=== PATIENT | female | born 1980 | race Asian ===

== ENCOUNTER 2022-10-09 08:15 | Emergency (ER) | payer MEDICAID, OTHER ==
[~2022-10-09] VITALS: Ht 152.4 cm; Wt 48.5 kg
[2022-10-09 08:56] VITALS: BP_SYST 116; PULSE 80; RESP 17; TEMP 98.6; O2SAT 98
[2022-10-09 09:23] LABS: STREPTOCOCCUS A SCREEN (RAPID) NEGATIVE (NEGATIVE)
[2022-10-09 09:26] LABS: COVID19 ANTIGEN SOFIA FIA POSITIVE (NEGATIVE)
[2022-10-09 09:28] LABS: INFLUENZA TYPE A negative (NEGATIVE); INFLUENZA TYPE B NEGATIVE (NEGATIVE)
[2022-10-09] MEDS ORDERED: NIRM1TAB5 PO (09:58)
[2022-10-09] MEDS ORDERED: IBUP-1969 PO (09:58)
[2022-10-09 11:25] VITALS: BP_SYST 116; PULSE 80; RESP 17; TEMP 98.6; O2SAT 98
== END 2022-10-09 10:10 | disposition home or self-care (01) ==
LOC: SED 08:15
DX: U07.1 COVID-19 (principal); J40 Bronchitis, not specified as acute or chronic; R05.9 Cough, unspecified; J02.9 Acute pharyngitis, unspecified; R09.81 Nasal congestion; Z79.899 Other long term (current) drug therapy
CPT/HCPCS: 36415; 71045; 81025; 86403; 87081; 99284

== ENCOUNTER 2023-01-14 08:07 | Emergency (ER) | payer MEDICAID ==
[~2023-01-14] VITALS: Ht 152.4 cm; Wt 48.5 kg
[2023-01-14 08:07] VITALS: BP_SYST 120; PULSE 84; RESP 18; TEMP 98.3; O2SAT 100
[~2023-01-14 08:07] MED LIST: IBUP-1969 PO; NIRM1TAB5 PO
[2023-01-14] MEDS ORDERED: ACETAMINOPHEN 500 MG TABLET ONE (09:12)
[2023-01-14 10:18] LABS: INFLUENZA TYPE A Negative (NEGATIVE); INFLUENZA TYPE B NEGATIVE (NEGATIVE)
[2023-01-14] MEDS ORDERED: PSEU30TA36 PO (10:26)
[2023-01-14] MEDS ORDERED: IBUP-1969 PO (10:26)
[2023-01-14 11:30] VITALS: BP_SYST 120; PULSE 84; RESP 18; TEMP 99.8; O2SAT 100
== END 2023-01-14 11:29 | disposition home or self-care (01) ==
LOC: SED 08:07
DX: J40 Bronchitis, not specified as acute or chronic (principal); Z79.899 Other long term (current) drug therapy; Z20.822 Contact with and (suspected) exposure to COVID-19
CPT/HCPCS: 36415; 71045; 99284

== ENCOUNTER 2023-08-18 16:20 | Emergency (ER) | payer OTHER, MEDICAID ==
[~2023-08-18] VITALS: Ht 152.4 cm; Wt 51.7 kg
[~2023-08-18 16:20] MED LIST changes: +PSEU30TA36 PO
[2023-08-18 16:43] VITALS: BP_SYST 128; PULSE 71; RESP 18; TEMP 98.1; O2SAT 100
[2023-08-18 17:32] LABS: BILIRUBIN,URINE NEGATIVE (NEGATIVE); BLOOD, URINE 1+ (NEGATIVE); COLOR,URINE YELLOW (YELLOW); GLUCOSE,URINE NEGATIVE (NEGATIVE); KETONES,URINE NEGATIVE (NEGATIVE); LEUKOCYTE ESTERASE ,URINE 2+ (NEGATIVE); NITRITE, URINE NEGATIVE (NEGATIVE); PROTEIN URINE NEGATIVE (NEGATIVE); UROBILINOGEN,URINE 0.2 (0.2-1.0)
[2023-08-18 18:30] LABS: CLARITY/URINE SLIGHTLY CLOUDY (CLEAR)
[2023-08-18 18:31] LABS: BACTERIA,URINE RARE /HPF (None Seen); RBC,URINE 0-3 /HPF (0-3); WBC,URINE 0-3 /HPF (0-3)
[2023-08-18 19:25] VITALS: BP_SYST 125; PULSE 62; RESP 16; TEMP 97.9; O2SAT 99
== END 2023-08-18 19:25 | disposition home or self-care (01) ==
LOC: EDSEX 16:20 → SED 16:20
DX: S70.01XA Contusion of right hip, initial encounter (principal); S09.8XXA Other specified injuries of head, initial encounter; R10.84 Generalized abdominal pain; Z79.899 Other long term (current) drug therapy; Z79.2 Long term (current) use of antibiotics; V89.2XXA Person injured in unspecified motor-vehicle accident, traffic, initial encounter; Y93.89 Activity, other specified; Y92.89 Other specified places as the place of occurrence of the external cause; Y99.8 Other external cause status
CPT/HCPCS: 70450-TC; 81000; 81001; 81015; 81025; 87086; 87186; 99284